=== PATIENT | male | born 1945 | race Caucasian/White ===

== ENCOUNTER 2016-12-24 00:30 | Inpatient (IN) ==
--- NOTE | 2016-12-24 03:43 | Emergency Department Note ---
Disposition Clinical Impression: Inguinal hernia Qualifiers: Obstruction and gangrene presence: without obstruction or gangrene Laterality: unilateral Recurrence: not specified as recurrent Qualified Code(s): K40.90 - Unilateral inguinal hernia, without obstruction or gangrene, not specified as recurrent Disposition: Admitted As Inpatient Condition: Fair [facility] Care Provider[facility] - Forms: ED Satisfaction Letter Time of Disposition: 04:22 Male Urogenital HPI - General Chief complaint: ED Urogenital-Male Stated complaint: poss strangulated right inguinal hernia Time Seen by Provider: 12/24/16 00:50 Source: patient, EMS Limitations: no limitations - History of Present Illness HPI Narrative: patient brought to the ED via EMS from [facility] after it was discovered he has a right strangulated inguinal hernia. They sent his CT with him. He is having mild pain in the right testicle, with swelling. He further has a history of throat cancer, has a permanent tracheostomy, diabetes. No reported fever, no nausea or vomiting Pt Subjective Complaint: testicle pain Onset (ago): hour(s) Duration: intermittent Location: right testicle Severity: mild, moderate Severity scale (1-10): 4 Quality: sharp Improves with: none Worsens with: palpation, movement Reports: denies other symptoms - Related Data Home Medications Medication Instructions Recorded Confirmed Budesonide/Formoterol 160/4.5 1 puff IH BIDR 09/12/15 09/16/16 [Symbicort 160/4.5] Insulin Glargine [Lantus] 10 unit SQ HS 09/12/15 09/16/16 Levothyroxine [Synthroid] 150 mcg PO DAILY 09/12/15 09/16/16 Albuterol Neb [Proventil Neb] 2.5 mg IH TID 11/14/15 09/16/16 Albuterol Sulfate [Albuterol 90 mcg IH Q4HR PRN 11/14/15 09/16/16 Inhaler] Ferrous Sulfate 324 mg PO DAILY 05/21/16 09/16/16 Docusate Sodium [Diocto] 60 mg PO DAILY PRN 09/16/16 09/16/16 GuaiFENesin/Dextromethorphan 10 ml PO Q6H PRN 09/16/16 09/16/16 [Children's Mucinex Cough Liq] Polyethylene Glycol 3350 [MiraLAX] 17 gm PO DAILY 09/16/16 09/16/16 Previous Rx's Medication Instructions Recorded HYDROcodone/ACETA 7.5-325/15mL 10 - 15 ml PO Q6H PRN #450 solution 05/21/16 Hydrocodone/Acetaminophen 10 ml GTUBE Q4-6H PRN #150 solution 09/16/16 [Hydrocodon-Acetamin 7.5-325/15] Allergies Allergy/AdvReac Type Severity Reaction Status Date / Time diphenhydramine Allergy Hives Verified 05/21/16 08:44 [From Benadryl] Sulfa (Sulfonamide AdvReac Dizziness Verified 05/21/16 08:44 Antibiotics) All systems ED: reviewed and negative except as stated. Constitutional: Denies: fever, chills, weakness, weight change Genitourinary: Reports: testicular pain Past Medical History - Past Medical History Attestation: Yes The following information was validated with the patient. Source: patient, nursing notes reviewed Medical history: Reports: cancer, COPD, diabetes, GERD, hyperlipidemia, thyroid disease Psychiatric history: Reports: no psych history - Social History Smoking Status: Never smoker Smokeless Tobacco Status: No Alcohol use: Reports: none Drug use: Reports: none Physical Exam - General Limitations: no limitations General appearance: alert, in no apparent distress - Head Head exam: normal inspection - Eye Eye exam: Present: normal appearance - ENT ENT exam: normal exam, normal oropharynx, mucous membranes moist, normal external ear exam - Neck Neck exam: Present: normal inspection, full ROM, trachea midline, other ( permanent tracheostomy present with mask, moderate amount secretions, suctioned ) - Chest Chest inspection: Present: normal inspection, symmetric chest wall rise. Absent : tenderness, rash - Cardiovascular Cardiovascular exam: Present: regular rate, normal rhythm, normal heart sounds - Male exam: Present: inguinal hernia (right), scrotal swelling (right ) Scrotal exam: testicular tenderness: right, testicular swelling: right - Extremities Exam Extremities exam: Present: normal inspection, full ROM - Neurological Exam Neurological exam: Present: alert, oriented X3, normal gait Course - Reevaluation(s) Reevaluation #1: Advised Dr. Selby of patient and he advised to attempt to reduce hernia, and if reduciable he will see on outpatient. Unable to reduce hernia. Dr. Selby advise.d - Consultations Consultation #1: spoke with Dr. Dill, hospitalist and he accepted patient Time: 04:10 ([address] Selby of need to admit patient, he will see on consult in am ) Vital Signs Temperature 98.9 F 12/24/16 00:33 Pulse Rate 76 12/24/16 00:33 Respiratory Rate 18 12/24/16 00:33 Blood Pressure 130/75 12/24/16 00:33 O2 Sat by Pulse Oximetry 94 12/24/16 00:33 Temperature 98.9 F 12/24/16 00:33 Pulse Rate 76 12/24/16 00:33 Respiratory Rate 18 12/24/16 00:33 Blood Pressure 130/75 12/24/16 00:33 O2 Sat by Pulse Oximetry 94 12/24/16 00:33 Oxygen Delivery Oxygen Delivery Trach Mask Urogenital-Male - Differential Diagnosis Likely: inguinal hernia - Medical Records Medical records reviewed: Yes I reviewed the patient's medical records. Attestation Statement - Attestation Attestation: I personally interviewed and examined this patient and my medical decision- making was reviewed with the Advanced Practice Nurse, Ms. Riggins. I agree with the documented findings, disposition and treatment plan as described except to the extent set forth below. Patient is a 71-year-old white male with multiple medical problems who resides in an extended care facility a [facility] with the [facility]. Patient was sent to us after complaining of right groin pain and medical evaluation at the [facility], having performed a CT scan with contrast which shows an incarcerated strangulated right inguinal hernia. Patient arrives here with ongoing right groin pain and fullness visible on exam is localized tenderness to palpation to the affected area. All of patient's labs were performed today including his CT scan and he was sent here for admission and sedative treatment of this hernia. Patient's vital signs are stable on arrival, he is awake alert and oriented 4, stable blood pressure. Patient with a history of numerous chronic medical problems including current trach and received oxygen by trach mask. Patient's caregiver and power of web press roll tender for health care was with the patient on arrival. Patient denies any nausea vomiting, no fevers chills, no other abdominal pain or flank pain, no urinary symptoms or bowel changes. After physical examination patient as well as review of medical records we contacted Dr. Selby, who is on-call for surgery who agreed to consult on the patient and recommended admission to medicine due to patient's other comorbidities and trach management. Dr. Nelson accepted the patient for admission for further evaluation and management.
[2016-12-24] MEDS ORDERED: *HR* HYDROmorphone (PF) 1 MG/ML SYRINGE IVP ONE (04:20)
[2016-12-24] MEDS ORDERED: 0.9 % Sodium Chloride 1,000 ML IVC SCH ×2 (04:30→06:45)
[2016-12-24] MEDS ORDERED: Acetaminophen 325 MG TABLET PO PRN ×2 (06:42→19:28)
[2016-12-24] MEDS ORDERED: Naloxone 0.4 MG/ML INJ IVP PRN (06:42)
--- NOTE | 2016-12-24 06:52 | Internal Med History&Physical ---
Date of Encounter: 12/24/16 Time of Encounter: 06:51 Assessment and Plan (1) Incarcerated right inguinal hernia Current visit: Yes Status: Acute Surgical consult for possible reduction versus Operative management. Pain relief. Kepp the pt NPO and start IV fluids. (2) Diabetes mellitus Current visit: No Status: Chronic start sliding scale insulin Qualifiers: Diabetes mellitus type: type 2 Diabetes mellitus complication status: without complication Diabetes mellitus correction insulin use: with terminal carman use Qualified Code(s): E11.9 - Type 2 diabetes mellitus without complications ; Z79.4 - terminal supervisor (current) use of insulin (3) COPD (chronic obstructive pulmonary disease) Current visit: Yes Status: Chronic Continue bronchodilators Qualifiers: COPD type: unspecified COPD Qualified Code(s): J44.9 - Chronic obstructive pulmonary disease, unspecified (4) Hypothyroidism Current visit: Yes Status: Chronic Continue synthroid Qualifiers: Hypothyroidism type: acquired Qualified Code(s): E03.9 - Hypothyroidism, unspecified (5) Tracheostomy dependence Current visit: Yes Status: Chronic Continue tracheostomy care (6) Status post insertion of percutaneous endoscopic gastrostomy (PEG) tube Current visit: Yes Status: Acute continue PEG tube feeds, when the surgeon clears the pt (7) CAD (coronary artery disease) Current visit: Yes Status: Chronic Pt denies any h/o ACS / NV or revascularization. However, his medical records from [facility] show CAD as one of the problems. Will request EKG. Qualifiers: Coronary Disease-Associated Artery/Lesion type: [place] artery [place] vs. transplanted heart: [place] heart Associated angina: without angina Qualified Code(s): I25.10 - Atherosclerotic heart disease of [place] coronary artery without angina pectoris (8) DVT prophylaxis Current visit: Yes Status: Acute Consider subq heparin, after the surgery Internal Medicine - H&P: HPI Chief complaint: Right inguinal pain; swelling Admitted From: Emergency Dept Plans for Post Hospital Care: Home History of present illness: Mr. 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 He has right inguinal hernia since the beginning of the year and was managed conservatively. [facility] with [facility] and swelling of the right inguinal area and the scrotum. He had CT scan of the abdomen and pelvis at [facility], which reported large right inguinal hernia containing several tacos bowel loops. Slightly increased mild free fluid and stranding at the gall bladder neck suggests a degree of strangulation. No bowel obstruction. He was transferred to the ER at [facility] for further management. Surgeon Dr Selby was notified by ER, who advised admission to the hospitalist service. Pt reports throbbing pain in the right inguinal area and scrotum, which is throbbing and 8/10; worse when he stands. Had BM yesterday, which was normal. Denies nausea or vomiting. His last PEG feeds were yesterday 4 PM. He denies fever, shortness of breath, urinary problems. He is due to have his tracheostomy cannula changed soon. Past Med Surg Social Fam HX - Past Medical History Medical history: cancer, COPD, diabetes, GERD, hyperlipidemia, thyroid disease Psychiatric history: no psych history - Social History Smoking Status: Never smoker Smokeless Tobacco Status: No Alcohol use: none Drug use: none - Family History Brother Hx Family Respiratory Disorders: Yes (COPD) Internal Medicine - H&P: Meds Budesonide/Formoterol 160/4.5 [Symbicort 160/4.5] 1 puff IH BIDR 09/12/15 [ History] Insulin Glargine [Lantus] 10 unit SQ HS 09/12/15 [History] Levothyroxine [Synthroid] 150 mcg PO DAILY 09/12/15 [History] Albuterol Neb [Proventil Neb] 2.5 mg IH TID 11/14/15 [History] Albuterol Sulfate [Albuterol Inhaler] 90 mcg IH Q4HR PRN 11/14/15 [History] Ferrous Sulfate 324 mg PO DAILY 05/21/16 [History] HYDROcodone/ACETA 7.5-325/15mL 10 - 15 ml PO Q6H PRN #450 solution 05/21/16 [Rx] Docusate Sodium [Diocto] 60 mg PO DAILY PRN 09/16/16 [History] GuaiFENesin/Dextromethorphan [Children's Mucinex Cough Liq] 10 ml PO Q6H PRN 06/23 [History] Hydrocodone/Acetaminophen [Hydrocodon-Acetamin 7.5-325/15] 10 ml GTUBE Q4-6H PRN #150 solution 09/16/16 [Rx] Polyethylene Glycol 3350 [MiraLAX] 17 gm PO DAILY 09/16/16 [History] Allergies diphenhydramine [From Benadryl] Allergy (Verified 05/21/16 08:44) Hives Sulfa (Sulfonamide Antibiotics) Adverse Reaction (Verified 05/21/16 08:44) Dizziness All Systems PM: A 10-system review of systems was performed and is negative for pertinent findings except as documented above in the HPI. - Constitutional Vitals: Temp Pulse Resp BP Pulse Ox 98.3 F 63 18 129/80 99 12/24/16 05:32 12/24/16 05:32 12/24/16 05:32 12/24/16 05:32 12/24/16 05:32 Exam: Gen: not in acute destress at my evaluation. HEENT / Neck: Tracheostomy / trach collar in place. No scleral icterus. Cardiac: RRR; No significant murmurs Lungs: B/L air entry present. No significant wheeze Abdomen: PEG tube in place.Tenderness over the right lower abdomen and the scrotum. Bowel sounds present of the hernria. : No garcia cath Neuro: Pt is alert and oriented. No gross weakness of the extremities. Psych: Not aggressive or agitated. Extremities: No significant leg edema skin: No generalized rash. Internal Med - H&P Results - Labs CBC & Chem 7: 12/24/16 07:08 12/24/16 07:08 - Impressions CT scan of the abdomen and pelvis at [facility], which reported large right inguinal hernia containing several tacos bowel loops. Slightly increased mild free fluid and stranding at the gall bladder neck suggests a degree of strangulation. No bowel obstruction.
--- NOTE | 2016-12-24 07:03 | General Surgery Consult Note ---
Date of Encounter: 12/24/16 Time of Encounter: 07:00 Assessment and Plan (1) Incarcerated right inguinal hernia Current Visit: Yes Status: Acute We will plan repair later today of incarcerated right inguinal hernia. This does not appear to be strangulated. The patient also has oxygen dependent COPD as well as diabetes. Patient also has a permanent tracheostomy. This is scheduled to be changed in the future and I will discuss this with History of Present Illness Consult date: 12/24/16 Reason for consult: other (Painful right groin swelling) History of present illness: The patient was in his usual state of health until yesterday. He has severe COPD and head and neck cancer with permanent tracheostomy. He receives feedings via feeding tube. And he is diabetic. He presented to the emergency department after his caregiver noted a painful swelling in his right groin. He has known that he has had a hernia since September in the right lower. Today they were unable to reduce his inguinal hernia. He denies nausea or vomiting he denies generalized abdominal pain. Attempts at reduction of the hernia in the emergency room failed. I evaluated the patient this morning and I was also unable to reduce the hernia. The hernias right inguinal hernia likely sliding and incarcerated but not obstructed. We will plan on repair later today. Past Med Surg Social Fam HX - Past Medical History Medical history: cancer, COPD, diabetes, GERD, hyperlipidemia, thyroid disease Psychiatric history: no psych history - Past Surgical History Surgical History: other (The patient has had resection of base of tongue had neck cancer, tracheostomy, and feeding tube placement) - Social History Smoking Status: Never smoker Smokeless Tobacco Status: No Alcohol use: none Drug use: none - Family History Brother Hx Family Respiratory Disorders: Yes (COPD) Medications and Allergies Budesonide/Formoterol 160/4.5 [Symbicort 160/4.5] 1 puff IH BIDR 09/12/15 [ History] Insulin Glargine [Lantus] 10 unit SQ HS 09/12/15 [History] Levothyroxine [Synthroid] 150 mcg PO DAILY 09/12/15 [History] Albuterol Neb [Proventil Neb] 2.5 mg IH TID 11/14/15 [History] Albuterol Sulfate [Albuterol Inhaler] 90 mcg IH Q4HR PRN 11/14/15 [History] Ferrous Sulfate 324 mg PO DAILY 05/21/16 [History] HYDROcodone/ACETA 7.5-325/15mL 10 - 15 ml PO Q6H PRN #450 solution 05/21/16 [Rx] Docusate Sodium [Diocto] 60 mg PO DAILY PRN 09/16/16 [History] GuaiFENesin/Dextromethorphan [Children's Mucinex Cough Liq] 10 ml PO Q6H PRN 06/23 [History] Hydrocodone/Acetaminophen [Hydrocodon-Acetamin 7.5-325/15] 10 ml GTUBE Q4-6H PRN #150 solution 09/16/16 [Rx] Polyethylene Glycol 3350 [MiraLAX] 17 gm PO DAILY 09/16/16 [History] Allergies diphenhydramine [From Benadryl] Allergy (Verified 05/21/16 08:44) Hives Sulfa (Sulfonamide Antibiotics) Adverse Reaction (Verified 05/21/16 08:44) Dizziness Review of Systems ROS unobtainable: due to endotracheal tube All systems PM: reviewed and no additional remarkable complaints except as stated (The patient's power of day haul youth supervisor reports no difficulties with feedings or vomiting. She does state that the patient has pulmonary nodules and is scheduled for CAT scan. She also states that the tracheostomy tube is scheduled to be changed.) All systems PM: A 10-system review of systems was performed and is negative for pertinent findings except as documented above in the HPI. General Surgery Exam Initial Vital Signs Temp Pulse Resp BP Pulse Ox 98.9 F 76 18 130/75 94 12/24/16 00:33 12/24/16 00:33 12/24/16 00:33 12/24/16 00:33 12/24/16 00:33 - General physical appearance no pain, cachectic, chronically ill - Neck other (Status post base of tongue resection and neck dissection. Tracheostomy) - Respiratory crackles: bilateral, wheezing: bilateral - Cardiovascular Cardiovascular exam: Present: RRR, no murmurs/rubs/gallops - Abdomen Abdomen general surgery: Present: bowel sounds present, non tender Hernia: Present: incarcerated, inguinal (Right) - Genitourinary Present: other (Sliding hernia extends into the proximal on the right side) - Neurologic Present: CN 2-12 grossly intact, normal coordination, normal sensation - Psychiatric Psychiatric general surgery: Present: appropriate, oriented to person, oriented to place, oriented to time, speech is normal, memory intact Exam Initial Vital Signs Temp Pulse Resp BP Pulse Ox 98.9 F 76 18 130/75 94 12/24/16 00:33 12/24/16 00:33 12/24/16 00:33 12/24/16 00:33 12/24/16 00:33 Results - Labs All other labs normal. Consult Discharge Plan - Plan [facility]errals: [facility] [Primary Care Provider] -
[2016-12-24 07:30] LABS: BUN/Creatinine Ratio 25 (6-26); Blood Urea Nitrogen 20 mg/dL (8-26); Carbon Dioxide 28 mEq/L (19-29); Chloride 104 mEq/L (98-109); Glucose 91 mg/dL (70-99); Magnesium 2.1 mg/dL (1.6-2.6); Osmolality,Calculated 286 (280-300); Potassium 4.2 mEq/L (3.5-4.5); Sodium 137 mEq/L (136-145); eGFR For African Americans > 60 (> 60); eGFR For Non-African Americans > 60 (> 60)
[2016-12-24] MEDS ORDERED: Dextrose Gel 15 GM PO PRN ×4 (07:33→19:28)
[2016-12-24] MEDS ORDERED: D5% in Water 1,000 ML IVC PRN ×2 (07:33→19:28)
[2016-12-24] MEDS ORDERED: *HR* Dextrose 50 % in Water (Syg) 50 ML SYRINGE IVP PRN ×2 (07:33→19:28)
[2016-12-24 07:40] LABS: Hematocrit 35.1 % (37.5-50.1); Hemoglobin 11.5 g/dL (12.9-16.9); Mean Corpuscular HGB Conc 32.8 g/dL (31.6-35.5); Mean Corpuscular Volume 88.4 fL (83.0-100.0); Mean Platelet Volume 10.6 fL (9.4-12.4); Platelet Count 178 K/mcL (140-400); Red Blood Count 3.97 M/mcL (4.19-5.50); Red Cell Distribution Width 13.2 % (11.5-14.5)
[2016-12-24] MEDS ORDERED: *HR* HYDROcodone/Acet 7.5/325 mg TABLET PO PRN (07:43)
[2016-12-24] MEDS ORDERED: D5% in 0.9% NACL 1,000 ML IVC SCH (07:45)
[2016-12-24 08:00] LABS: Basophils % 0.4 %; Eosinophils # 0.2 K/mcL (0.0-0.6); Immature Granulocytes % 0.4 % (0-4); Lymphocytes % 18.8 %; Monocytes # 0.7 K/mcL (0.0-1.3); Monocytes % 12.1 %; Neutrophils # 3.6 K/mcL (1.6-8.9); Segmented Neutrophils % 64.3 %
[2016-12-24 08:10] LABS: Alanine Aminotransferase 20 Units/L (0-55); Albumin 3.3 g/dL (3.5-5.0); Alkaline Phosphatase 92 Units/L (38-126); Aspartate Amino Transferase 21 Units/L (5-34); Bilirubin,Total 0.5 mg/dL (0.2-1.2); Globulin 3.3 g/dL (2.4-3.5); Total Protein 6.6 g/dL (6.0-8.3)
--- NOTE | 2016-12-24 08:19 | Internal Med Progress Note ---
<Brandon Singer - Last Filed: 12/24/16 10:28> Date of Encounter: 12/24/16 Time of Encounter: 08:15 - Assessment and plan (1) Incarcerated right inguinal hernia Current Visit: Yes Status: Acute Assessment and plan: [facility] demonstrates incarcerated right inguinal hernia. Patient is seen and evaluated by general surgery with plans for intervention today. - Preop PA lateral chest x-ray completed without any acute findings. Plan: - Surgical intervention per general surgery - Nothing by mouth in preparation for procedure today. (2) COPD exacerbation Current Visit: No Status: Acute Assessment and plan: Known history of COPD, tracheostomy in place requires 3 L of oxygen at baseline at home. Currently on 3 L of oxygen with oxygen saturations greater than 90%. Plan: Start Proventil nebulizer every 6 hours - DuoNeb's when necessary - Continue Symbicort (3) Hypothyroidism Current Visit: Yes Status: Chronic Assessment and plan: Known history of hypothyroidism, plan to continue levothyroxine 150mcg by mouth daily Qualifiers: Hypothyroidism type: acquired Qualified Code(s): E03.9 - Hypothyroidism, unspecified (4) Diabetes mellitus Current Visit: No Status: Chronic Assessment and plan: Known type II diabetic, current glucose 103. - Continue every 6 hour glucose checks as patient is nothing by mouth prior to surgical procedure. - Low-dose sliding scale replacement. - Patient is nothing by mouth so we will continue D5 saline at 75 ML's per hour Qualifiers: Diabetes mellitus type: type 2 Diabetes mellitus complication status: without complication Diabetes mellitus equipment operator intermodal yard insulin use: with equipment operator intermodal yard use Qualified Code(s): E11.9 - Type 2 diabetes mellitus without complications ; Z79.4 - nursing home (current) use of insulin (5) Laryngeal cancer Current Visit: No Status: Acute Assessment and plan: Known history of laryngeal cancer currently tracheostomy dependent. (6) Feeding by G-tube Current Visit: No Status: Acute Assessment and plan: Patient requires feedings through his G-tube. - Nothing by mouth prior to inguinal hernia procedure. (7) DVT prophylaxis Current Visit: No Status: Acute Assessment and plan: SCDs. - Subjective Interval history: Mr. Mosher 71 yo M has been seen and evaluated this morning. He is sitting up in bed in no acute distress. He says he has 5 out of 10 groin pain with his hernia. He explains that he has been receiving oxycodone for his pain. He is awaiting surgical intervention for his incarcerated hernia and says they will be changing out his trach. He denies any other concerns at this time. - Constitutional Vitals: Temp Pulse Resp BP Pulse Ox 98.3 F 63 18 129/80 99 12/24/16 05:32 12/24/16 05:32 12/24/16 05:32 12/24/16 05:32 12/24/16 05:32 - Other Additional findings: General alert awake oriented in no acute distress HEENT: Normocephalic, atraumatic, pupils equal and reactive, oral mucosa moist, neck is supple trach tube in place. Respiratory: Diffuse rhonchi all lung fragoso with inspiratory and expiratory respiratory effort. Cardiac: Regular rate and rhythm positive S1-S2 no murmurs or gallops appreciated. Radial pulses 2+ bilateral. Abdomen: Slightly distended nontender to palpation, PEG tube in left upper quadrant in place. Slight tenderness to palpation of the right inguinal region. Extremities: Symmetric bilateral without any significant deformity, without edema. Internal Medicine: Result - Labs CBC & Chem 7: 12/24/16 07:08 12/24/16 07:08 Labs: Short CBC 12/24/16 Range/Units 07:08 WBC 5.4 (4.3-11.1) K/mcL Hgb 11.5 L (12.9-16.9) g/dL Hct 35.1 L (37.5-50.1) % Plt Count 178 (140-400) K/mcL Neutrophils # 3.6 (1.6-8.9) K/mcL BMP 12/24/16 07:08 Sodium 137 Potassium 4.2 Chloride 104 Carbon Dioxide 28 BUN 20 Creatinine 0.80 Glucose 91 Calcium 9.0 Liver Function 12/24/16 Range/Units 07:08 Total Bilirubin 0.5 (0.2-1.2) mg/dL AST 21 (5-34) Units/L ALT 20 (0-55) Units/L Alkaline Phosphatase 92 (38-126) Units/L Albumin 3.3 L (3.5-5.0) g/dL - VTE Documentation of Mechanical Device: Graduated compression elastic hosiery Consult Discharge Plan - Plan [facility]errals: [facility] [Primary Care Provider[facility] - <Gerardo-Haylee Dougherty - Last Filed: 12/24/16 16:13> Date of Encounter: 12/24/16 - Constitutional Vitals: Temp Pulse Resp BP Pulse Ox 98.1 F 64 19 118/62 100 12/24/16 15:14 12/24/16 15:14 12/24/16 15:14 12/24/16 15:27 12/24/16 15:14 Internal Medicine: Result - Labs CBC & Chem 7: 12/24/16 07:08 12/24/16 07:08 Labs: Short CBC 12/24/16 Range/Units 07:08 WBC 5.4 (4.3-11.1) K/mcL Hgb 11.5 L (12.9-16.9) g/dL Hct 35.1 L (37.5-50.1) % Plt Count 178 (140-400) K/mcL Neutrophils # 3.6 (1.6-8.9) K/mcL BMP 12/24/16 07:08 Sodium 137 Potassium 4.2 Chloride 104 Carbon Dioxide 28 BUN 20 Creatinine 0.80 Glucose 91 Calcium 9.0 Liver Function 12/24/16 Range/Units 07:08 Total Bilirubin 0.5 (0.2-1.2) mg/dL AST 21 (5-34) Units/L ALT 20 (0-55) Units/L Alkaline Phosphatase 92 (38-126) Units/L Albumin 3.3 L (3.5-5.0) g/dL - ABG Interpretation ABG results: PT/INR, D-dimer PT 11.5 Seconds (9.4-12.1) 12/24/16 08:02 - Impressions Impressions Chest X-Ray 12/24/16 09:42 IMPRESSION: Mild linear airspace changes in the lung bases which could represent atelectasis versus infiltrate versus scarring. Follow up to resolution is suggested. D/ / 12/24/2016 10:19:39 Sarah Tejeda MD / Domi Larson Interpreting Provider: Sarah Tejeda MD - Attending Attestation I examined this patient and reviewed laboratory, imaging and all diagnostic data. My medical decision-making was reviewed with Dr Singer - Resident Physician. I agree with the documented findings, disposition and treatment plan as described above
[2016-12-24 08:45] LABS: INR 1.1; Prothrombin Time 11.5 Seconds (9.4-12.1)
[2016-12-24 08:47] LABS: Activated Partial Thrombo Time 30.4 Seconds (26.0-36.0)
--- NOTE | 2016-12-24 09:28 | Electrocardiograph Report ---
[address] [place] [address] Test Date: 2016-12-24 Pat Name: Jose Mosher Department: 115 Room: 3A41 Gender: M Day Porter: NANCI : 1945 Requested By: Parisa Dill Order Number: [id number] Reading MD: Coleman Moseley DO Measurements Intervals [place] Rate: 56 P: 33 PA: 161 QRS: 31 QRSD: 90 T: 18 QT: 414 QTc: 406 Interpretive Statements SINUS BRADYCARDIA Electronically Signed On 12-24-2016 9:27:26 EDT by Coleman Moseley DO
[2016-12-24] MEDS ORDERED: Budesonide/Formoterol 160/4.5 MDI IH SCH (10:00)
[2016-12-24] MEDS ORDERED: Insulin LISPRO 300 UNITS/3 ML VIAL SQ SCH (12:00)
[2016-12-24] MEDS ORDERED: Pantoprazole 40 MG VIAL IVP SCH (12:15)
[2016-12-24] MEDS ORDERED: Ipratropium/Albuterol Neb 3 ML ONE (12:38)
[2016-12-24] MEDS: Ipratropium/Albuterol Neb 3 ML IH SCH ×3 (13:00→22:45)
[2016-12-24] MEDS ORDERED: Lidocaine -MPF 2% 2 ML VIAL ONE (15:48)
[2016-12-24] MEDS ORDERED: *HR* FentaNYL (PF) 100 MCG/2 ML VIAL ONE (16:07)
--- NOTE | 2016-12-24 16:19 | Anesthesia Evaluation PreOp ---
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) SKATE HOP History: CVA Other Medical History: Diabetes Type II (maintained on Lantus), Thyroid ( Hypothyroidism maintained on Synthroid), Other (Base of Tongue Cancer s/p Radiation) Anesthesia History: No Prior Anesthetic Complications, Past Anesthesia (PEG/ Trach) Alcohol Use: none Drug use: none Medications and Allergies Budesonide/Formoterol 160/4.5 [Symbicort 160/4.5] 1 puff IH BIDR 09/12/15 [ History] Insulin Glargine [Lantus] 10 unit SQ HS 09/12/15 [History] Albuterol Sulfate [Albuterol Inhaler] 2 puff IH TID PRN 11/14/15 [History] Docusate Sodium [Diocto] 100 mg PO DAILY PRN 09/16/16 [History] GuaiFENesin/Dextromethorphan [Children's Mucinex Cough Liq] 10 ml PO BID PRN 06/23 [History] Hydrocodone/Acetaminophen [Hydrocodon-Acetamin 7.5-325/15] 10 ml GTUBE Q4-6H PRN #150 solution 09/16/16 [Rx] Polyethylene Glycol 3350 [MiraLAX] 17 gm PO DAILY 09/16/16 [History] Ferrous Sulfate Oral Soln 220 mg GTUBE BID 12/24/16 [History] Fluticasone Propionate Nasal [Flonase] 100 mcg NS DAILY 12/24/16 [History] Ibuprofen Susp [Motrin Susp] 30 ml PO TID PRN 12/24/16 [History] Ipratropium/Albuterol Neb [Duoneb] 3 ml IH Q6HR 12/24/16 [History] Lactose-Reduced Food [Ensure Liquid] 1 bottle PO QID 12/24/16 [History] Lactose-Reduced Food/Fiber [Isosource 1.5 Sean Liquid] 250 ml GTUBE TID 12/24/16 [History] Lansoprazole [Prevacid] 30 mg PO DAILY 12/24/16 [History] Levothyroxine [Levothyroxine Sodium] 137 mcg PO DAILY 12/24/16 [History] Allergies diphenhydramine [From Benadryl] Allergy (Verified 05/21/16 08:44) Hives Sulfa (Sulfonamide Antibiotics) Adverse Reaction (Verified 05/21/16 08:44) Dizziness - Meds/Allergy Pre-op Review Medications Reviewed: Yes Allergies Reviewed: Yes Beta Blockers on Current Med List: No Anesthesia Results - Labs 12/24/16 07:08 12/24/16 07:08 Laboratory Tests 09/12/15 12/24/16 12/24/16 10:55 07:08 07:08 WBC 5.4 Hgb 11.5 L Hct 35.1 L Plt Count 178 PT INR APTT Sodium 137 Potassium 4.2 Chloride 104 Carbon Dioxide 28 BUN 20 Est GFR (Non-Af Amer) > 60 Glucose 91 B-Natriuretic Peptide 56 12/24/16 08:02 WBC Hgb Hct Plt Count PT 11.5 INR 1.1 APTT 30.4 Sodium Potassium Chloride Carbon Dioxide BUN Est GFR (Non-Af Amer) Glucose B-Natriuretic Peptide Anesthesia Exam Vital Signs Temp Pulse Resp BP Pulse Ox 12/24/16 15:27 118/62 12/24/16 15:14 98.1 F 64 19 90/60 100 12/24/16 13:01 18 111/61 100 12/24/16 11:16 97.8 F 65 18 111/61 100 12/24/16 05:32 98.3 F 63 18 129/80 99 12/24/16 04:46 18 128/70 12/24/16 00:33 98.9 F 76 18 130/75 94 Intake and Output 12/24/16 12/24/16 12/24/16 07:59 15:59 23:59 Intake Total 0 / 0 Output Total 300 / 300 0 / 0 Balance -300 / -300 0 / 0 Intake: Oral 0 / 0 Output: Urine 300 / 300 0 / 0 Other: Meal NPO Weight 72.983 kg Blood Glucose* 103 83 Patient Weight 12/24/16 23:59 Weight 72.983 kg Height: 5'6" Weight: 160# BMI = 26 NPO (# of Hours): MNOC - HEENT Pupil (Motor): Pupils equal, EOMI Mallampati: Trach Oral Opening: Greater than 3 - SKATE HOP LOC: Oriented, Confused SKATE HOP Motor: Normal RUE, Normal LUE, Normal RLE, Normal LLE, Normal Face SKATE HOP Sensory: Normal: RUE, LUE, RLE, LLE, Face - Cardiac Rhythm: Regular Murmur: None - Pulmonary Breath Sounds: bilateral Clear, bilateral Rales, bilateral Rhonchi Anesthesia Assess/Plan ASA Score: 4 (Trach dependent, COPD, HTN, Chol, DM, Hypothyroidism) Modified Malou Scale for Level of Consciousness: Cooperative, oriented, and tranquil Anesthetic Plan: General Monitoring Plan: Standard Monitors Recovery Plan: PACU Anes Supervising Prov Stmt: Pt seen/evaluated, R&B Discussed, questions answered and consent obtained. Kellie Stark MD
[2016-12-24] MEDS ORDERED: *HR* Midazolam HCl 2 MG/2 ML VIAL ONE (16:33)
[2016-12-24] MEDS ORDERED: *HR* Propofol 200 MG/20 ML VIAL IVP ONE (16:34)
[2016-12-24] MEDS ORDERED: EPHEDrine 50 MG/ML VIAL ONE (17:08)
[2016-12-24] MEDS ORDERED: Water for inj. (sterile) 10 ML IV ONE (17:08)
[2016-12-24] MEDS ORDERED: Dexamethasone 4 MG/ML VIAL ONE (17:22)
[2016-12-24] MEDS ORDERED: Ondansetron 4 MG/2 ML VIAL ONE (17:22)
[2016-12-24] MEDS ORDERED: *HR* HYDROmorphone 2 MG/ML SYRINGE ONE (17:24)
[2016-12-24] MEDS ORDERED: Dexamethasone 4 MG/ML VIAL IVP ONE (17:33)
[2016-12-24] MEDS ORDERED: *HR* Labetalol 100 MG/20 ML MDV IVP PRN (17:33)
[2016-12-24] MEDS ORDERED: Ondansetron 4 MG/2 ML VIAL IVP ONE (17:33)
--- NOTE | 2016-12-24 18:12 | Operative Note ---
Date of procedure: 12/24/16 Pre-op diagnosis: Incarcerated inguinal hernia Post-op diagnosis: same Procedure: #1Repair of incarcerated inguinal hernia with mesh #2Tracheostomy change Implants: prolene mesh Anesthesia: JUNITO Surgeon: Garret Selby Estimated blood loss (cc): 25 Specimen: hernia sac Condition: stable Disposition: PACU Procedure in Detail: After informed consent the patient was taken to the major operative suite placed in supine position. He had severe kyphosis. It was supported his neck and shoulders he was given adequate conscious sedation. Timeout was taken patient was identified. At the beginning of the case I previously discussed with his ENT surgeon exchanging his tracheostomy tube. He was scheduled to have this changed in several weeks and she asked me to go ahead and change out the tracheostomy tube as previously planned. After adequate conscious sedation removed the #8 balloon Shiley and replaced another #8 balloon Shiley. There are some granulation tissue on the right side of the wound and he had some bleeding. This rapidly stopped. We suctioned the airway and there was no blood in the airway we secured the tracheostomy tube with tapes and this was an excellent airway with no leak. He proceeded with inguinal hernia repair. I made an oblique incision overlying the right inguinal area at the site of lateral marybeth. I dissected down to the level of the external abdominal oblique. This is divided from lateral to medial through the external ring. There is a good deal small bowel on the scrotum. I surrounded the hernia sac and was able to pull the hernia sac out of the scrotum. The testicle was fused to the hernia sac. I was able to identify a dissection plane between the hernia sac and the spermatic cord and testicle. The spermatic cord and testicle were dissected off the hernia sac and returned to the scrotum. I surrounded the spermatic cord with a Chay. The hernia sac was normal sent full of small bowel. There was no cecal sliding component. The small bowel was reduced into the abdomen and I closed the hernia sac at the level of the fascia with a pursestring of 0 Nurolon. The hernia sac was removed. Once this was done there was really no remaining hernia. This was all indirect inguinal hernia. I decided to just use a Ed Prolene patch. I fashioned the Steinmann patch to the appropriate size. This was attached to the shelving edge of Poupart's ligament inferiorly. This was secured to the arcuate ligament and internal abdominal oblique superiorly. The lateral extensions of the Ed mesh were closed with 2 [id number] stitches thus re-creating the internal ring. This gave an excellent technical result. The cord structures were returned to their normal anatomic position. I injected 20 mL of Marcaine for local pain management. The external abdominal oblique was closed with interrupted Vicryl the skin with interrupted Vicryl and skin clips. He tolerated the procedure very well.
[2016-12-24] MEDS: *HR* HYDROmorphone (PF) 1 MG/ML SYRINGE IVP PRN ×2 (18:54→19:07)
--- NOTE | 2016-12-24 19:41 | Anesthesia Evaluation Post Op ---
Date of Encounter: 12/24/16 Time of Encounter: 19:30 - Vital Signs Vital Signs: Vital Signs/O2 Sat/Glucose, Most Current Temp Pulse Resp BP Pulse Ox 12/24/16 19:22 97.3 F L 73 18 137/79 97 12/24/16 19:12 97.3 F L 72 18 132/73 97 12/24/16 19:02 69 18 139/78 97 12/24/16 18:52 71 18 142/48 99 12/24/16 18:42 97.4 F L 70 18 117/65 97 12/24/16 18:32 65 18 113/62 98 12/24/16 18:22 63 18 119/71 99 12/24/16 18:12 97.3 F L 64 18 115/65 100 - Lungs Lungs: Clear Ascult./Percussion - Airway Airway: Non-obstructed - Cardiovascular Regular Rate - Mental Status Mental Status: Alert & Oriented, Answers Appropriately - Pain Pain Scale: 2 - Nausea Vomiting Nausea Vomiting: Not Present - Hydration Hydration: NPO - Discharge PostOp Status: Transfer Patient to floor
[2016-12-24] MEDS: *HR* HYDROcodone/Acet 7.5/325 mg TABLET PO PRN (21:07)
[2016-12-24] MEDS: Budesonide/Formoterol 160/4.5 MDI IH SCH (22:45)
[2016-12-25] MEDS: D5% in 0.9% NACL 1,000 ML IVC SCH ×2 (00:07→00:39)
[2016-12-25] MEDS: Insulin LISPRO 300 UNITS/3 ML VIAL SQ SCH ×2 (00:30→06:08)
[2016-12-25] MEDS: Ipratropium/Albuterol Neb 3 ML IH SCH ×2 (04:13→10:40)
[2016-12-25 04:52] LABS: Basophils % 0.1 %; Hematocrit 32.4 % (37.5-50.1); Hemoglobin 10.7 g/dL (12.9-16.9); Immature Granulocytes % 0.4 % (0-4); Lymphocytes # 0.4 K/mcL (0.6-4.6); Lymphocytes % 3.7 %; Mean Corpuscular Hemoglobin 29.2 pg (28.0-33.3); Mean Corpuscular Volume 88.3 fL (83.0-100.0); Mean Platelet Volume 10.9 fL (9.4-12.4); Monocytes # 0.7 K/mcL (0.0-1.3); Monocytes % 6.9 %; Platelet Count 186 K/mcL (140-400); Red Blood Count 3.67 M/mcL (4.19-5.50); Red Cell Distribution Width 13.1 % (11.5-14.5); Segmented Neutrophils % 88.9 %
[2016-12-25 05:00] LABS: Neutrophils # 8.5 K/mcL (1.6-8.9)
[2016-12-25 05:01] LABS: BUN/Creatinine Ratio 23 (6-26); Blood Urea Nitrogen 21 mg/dL (8-26); Calcium 8.7 mg/dL (8.6-10.8); Carbon Dioxide 24 mEq/L (19-29); Chloride 102 mEq/L (98-109); Glucose 194 mg/dL (70-99); Osmolality,Calculated 284 (280-300); Potassium 4.1 mEq/L (3.5-4.5); Sodium 133 mEq/L (136-145); eGFR For African Americans > 60 (> 60); eGFR For Non-African Americans > 60 (> 60)
[2016-12-25 05:34] LABS: Platelet Estimate Normal (Normal)
--- NOTE | 2016-12-25 07:23 | General Surgery Progress Note ---
Date of Encounter: 12/25/16 Time of Encounter: 07:15 - Assessment and Plan (1) Incarcerated right inguinal hernia Current Visit: Yes Status: Acute We will plan repair later today of incarcerated right inguinal hernia. This does not appear to be strangulated. The patient also has oxygen dependent COPD as well as diabetes. Patient also has a permanent tracheostomy. This is scheduled to be changed in the future and I will discuss this with 12/25/2016. Postoperative day 1 from right inguinal hernia repair. The patient is doing quite well and from a general surgery standpoint is ready for discharge. His tracheostomy has been changed and is free of any bleeding. Subjective Narrative: The patient is postoperative day 1 from repair of right inguinal hernia. The hernia was indirect. I used a Ed patch. He had a very large hernia sac all the way to the tip of the scrotum with the cord contents splayed over the surface. The testicle was intimately associated with the hernia sac. I actually had to remove the testicle and cord from the scrotum and carefully separate the components. The testicle was returned to the scrotum. He should have a good deal expected swelling in the testicle and will likely have some discomfort in this area for several weeks. Today his lungs are clear. I did not change the tracheostomy tube yesterday after discussion with Dr. Valentine. The patient is awake and alert and in very little pain. From a general surgery standpoint he is ready for discharge. Objective Vital Signs - Last 8 Hours Temp Pulse Resp BP Pulse Ox 12/25/16 04:14 18 99 12/25/16 03:13 97.6 F 68 20 88/44 98 12/24/16 23:30 97.6 F 95 16 111/63 97 Intake and Output 12/24/16 12/24/16 12/25/16 15:59 23:59 07:59 Intake Total 500 / 500 0 / 0 Output Total 0 / 0 675 / 675 Balance 0 / 0 500 / 500 -675 / -675 Intake: Free Water Intake Amount 500 / 500 0 / 0 Output: Urine 0 / 0 675 / 675 Other: Meal NPO npo Weight 72.575 kg Blood Glucose* 83 98 234 Patient Weight 12/25/16 23:59 Weight 72.575 kg - General physical appearance chronically ill - ENT Other (Tracheostomy in place and functioning without bleeding. Size 8 Shiley with a balloon) - Respiratory normal expansion, normal respiratory effort, clear to percussion, clear to auscultation - Cardiovascular Cardiovascular exam: Present: RRR, no murmurs/rubs/gallops - Abdomen Abdomen: Present: bowel sounds present, soft, non tender - Incision Incision: Present: clean and dry (The right hemiscrotum is free of hematoma. The dartose muscle is contracted as I would expect) - Neurologic normal coordination, normal sensation - Psychiatric oriented to time, oriented to person, oriented to place, speech is normal, memory intact - Labs 12/25/16 03:59 12/25/16 03:59 Diabetes panel 12/24/16 12/25/16 Range/Units 07:08 03:59 Sodium 137 133 L (136-145) mEq/L Potassium 4.2 4.1 (3.5-4.5) mEq/L Chloride 104 102 (98-109) mEq/L Carbon Dioxide 28 24 (19-29) mEq/L BUN 20 21 (8-26) mg/dL Creatinine 0.80 0.90 (0.72-1.25) mg/dL Glucose 91 194 H (70-99) mg/dL Calcium 9.0 8.7 (8.6-10.8) mg/dL AST 21 (5-34) Units/L ALT 20 (0-55) Units/L Alkaline Phosphatase 92 (38-126) Units/L Albumin 3.3 L (3.5-5.0) g/dL Calcium panel 12/24/16 12/25/16 Range/Units 07:08 03:59 Calcium 9.0 8.7 (8.6-10.8) mg/dL Albumin 3.3 L (3.5-5.0) g/dL Pituitary panel 12/24/16 12/25/16 Range/Units 07:08 03:59 Sodium 137 133 L (136-145) mEq/L Potassium 4.2 4.1 (3.5-4.5) mEq/L Chloride 104 102 (98-109) mEq/L Carbon Dioxide 28 24 (19-29) mEq/L BUN 20 21 (8-26) mg/dL Creatinine 0.80 0.90 (0.72-1.25) mg/dL Glucose 91 194 H (70-99) mg/dL Calcium 9.0 8.7 (8.6-10.8) mg/dL Adrenal panel 12/24/16 12/25/16 Range/Units 07:08 03:59 Sodium 137 133 L (136-145) mEq/L Potassium 4.2 4.1 (3.5-4.5) mEq/L Chloride 104 102 (98-109) mEq/L Carbon Dioxide 28 24 (19-29) mEq/L BUN 20 21 (8-26) mg/dL Creatinine 0.80 0.90 (0.72-1.25) mg/dL Glucose 91 194 H (70-99) mg/dL Calcium 9.0 8.7 (8.6-10.8) mg/dL Total Bilirubin 0.5 (0.2-1.2) mg/dL AST 21 (5-34) Units/L ALT 20 (0-55) Units/L Alkaline Phosphatase 92 (38-126) Units/L Albumin 3.3 L (3.5-5.0) g/dL - VTE Documentation of Mechanical Device: Intermittent pneumatic compression device Consult Discharge Plan - Plan [facility]errals: [facility] [Primary Care Provider[facility] -
[2016-12-25] MEDS: *HR* HYDROcodone/Acet 7.5/325 mg TABLET PO PRN (08:32)
[2016-12-25] MEDS ORDERED: Pantoprazole 40 MG VIAL IVP SCH (09:00)
--- NOTE | 2016-12-25 09:38 | Discharge Summary ---
<Brandon Sniger - Last Filed: 12/25/16 09:41> Date of Encounter: 12/25/16 Time of Encounter: 09:35 - Discharge Diagnosis (1) Incarcerated right inguinal hernia Priority: Primary Status: Acute (2) COPD exacerbation Priority: Secondary Status: Acute (3) Hypothyroidism Priority: Secondary Status: Chronic Qualifiers: Hypothyroidism type: acquired Qualified Code(s): E03.9 - Hypothyroidism, unspecified (4) Diabetes mellitus Priority: Secondary Status: Chronic Qualifiers: Diabetes mellitus type: type 2 Diabetes mellitus complication status: without complication Diabetes mellitus usp insulin use: with usp use Qualified Code(s): E11.9 - Type 2 diabetes mellitus without complications ; Z79.4 - FDC (current) use of insulin (5) Laryngeal cancer Priority: Secondary Status: Acute (6) Feeding by G-tube Priority: Secondary Status: Acute (7) Encounter for tracheostomy tube change Priority: Primary Status: Acute - Discharge Medications Home Medications: Budesonide/Formoterol 160/4.5 [Symbicort 160/4.5] 1 puff IH BIDR 09/12/15 [ History] Insulin Glargine [Lantus] 10 unit SQ HS 09/12/15 [History] Albuterol Sulfate [Albuterol Inhaler] 2 puff IH TID PRN 11/14/15 [History] Docusate Sodium [Diocto] 100 mg PO DAILY PRN 09/16/16 [History] GuaiFENesin/Dextromethorphan [Children's Mucinex Cough Liq] 10 ml PO BID PRN 06/23 [History] Hydrocodone/Acetaminophen [Hydrocodon-Acetamin 7.5-325/15] 10 ml GTUBE Q4-6H PRN #150 solution 09/16/16 [Rx] Polyethylene Glycol 3350 [MiraLAX] 17 gm PO DAILY 09/16/16 [History] Ferrous Sulfate Oral Soln 220 mg GTUBE BID 12/24/16 [History] Fluticasone Propionate Nasal [Flonase] 100 mcg NS DAILY 12/24/16 [History] Ibuprofen Susp [Motrin Susp] 30 ml PO TID PRN 12/24/16 [History] Ipratropium/Albuterol Neb [Duoneb] 3 ml IH Q6HR 12/24/16 [History] Lactose-Reduced Food [Ensure Liquid] 1 bottle PO QID 12/24/16 [History] Lactose-Reduced Food/Fiber [Isosource 1.5 Sean Liquid] 250 ml GTUBE TID 12/24/16 [History] Lansoprazole [Prevacid] 30 mg PO DAILY 12/24/16 [History] Levothyroxine [Levothyroxine Sodium] 137 mcg PO DAILY 12/24/16 [History] Allergies/Adverse Reactions: Allergies diphenhydramine [From Benadryl] Allergy (Verified 05/21/16 08:44) Hives Sulfa (Sulfonamide Antibiotics) Adverse Reaction (Verified 05/21/16 08:44) Dizziness Procedures/tests Complete & Pending: Procedures Performed prior 72 hours Category Date Time Status EKG [ECG 12 lead ECG] [ECG] Stat Y 12/24/16 06:45 Completed Date of admission: 12/24/16 06:42 Primary care physician: PCP [facility] Discharging clinician: Brandon Singer Anticipated date of discharge: 12/25/16 - Patient Status Disposition: Home, Self-Care Condition: Fair Functional capacity at discharge: independent ambulation Overall status at discharge: patient is progressing back to baseline - Discharge Instructions Follow Up With: Carleen Ray CNP [Advanced Practice Nurse] - 01/08/17 9:30 am [facility],PCP [Primary Care Provider] - 12/30/16 9:30 am Additional Instructions: Follow up with PCP in the next 3-5 days Follow up with general surgery in the outpatient setting - Diet and Activity Activity: increase activity as tolerated Diet: advance to your usual diet Interval History: Mr. Mosher is a 71 year old male with past medical history significant for COPD/ status post tracheostomy following pneumonia in September 2015, hypothyroidism, iron deficiency anemia, base of tongue cancer status post radiation therapy, type 2 diabetes mellitus, BPH, reflux esophagitis, coronary artery disease/CVA admitted to [facility] on 12/24/2016 with an incarcerated right inguinal hernia. He was admitted to the general medical floor and kept NPO for surgical intervention. He was seen and evaluated by general surgery and planned for hernia repair that evening. That evening he was brought to the OR and Dr. Selby performed a repair of incarcerated inguinal hernia with mesh and the ENT surgeon exchanging his tracheostomy tube. Mr. Mosher recovered well post- operatively. On 12/25/2016 He was seen by general surgery and cleared for discharge. He was seen and evaluated by the medical service and deemed stable for discharge with close follow up with his PCP and general surgery. Hospital course: Mr. Mosher is a 71 year old male - Time Spent with Patient Total time spent providing and/or coordinating discharge services: - Constitutional Vitals: Temp Pulse Resp BP Pulse Ox 97.8 F 65 20 91/46 98 12/25/16 07:29 12/25/16 07:29 12/25/16 07:29 12/25/16 07:29 12/25/16 07:29 Exam: General alert awake oriented in no acute distress HEENT: Normocephalic, atraumatic, pupils equal and reactive, oral mucosa moist, neck is supple trach tube in place. Respiratory: Clear to auscultation bilaterally in all lung fragoso with inspiratory and expiratory respiratory effort. Cardiac: Regular rate and rhythm positive S1-S2 no murmurs or gallops appreciated. Radial pulses 2+ bilateral. Abdomen: Slightly distended nontender to palpation, PEG tube in left upper quadrant in place. Slight tenderness to palpation of the right inguinal region. post surgical site is dressed without drainage. Extremities: Symmetric bilateral without any significant deformity, without edema. - VTE Documentation of Mechanical Device: Intermittent pneumatic compression device <Haylee Larson - Last Filed: 12/25/16 18:06> Date of Encounter: 12/25/16 Procedures/tests Complete & Pending: Procedures Performed prior 72 hours Category Date Time Status EKG [ECG 12 lead ECG] [ECG] Stat Y 12/24/16 06:45 Completed Date of admission: 12/24/16 06:42 Primary care physician: PCP [place] Hospital course: Mr. Mosher is a 71 year old male - Time Spent with Patient Total time spent providing and/or coordinating discharge services: - Constitutional Vitals: Temp Pulse Resp BP Pulse Ox 98.0 F 77 18 91/54 99 12/25/16 10:58 12/25/16 10:58 12/25/16 10:58 12/25/16 10:58 12/25/16 10:58 - Attending Attestation I examined this patient and reviewed laboratory, imaging and all diagnostic data. My medical decision-making was reviewed with Dr Singer - Resident Physician. I agree with the documented findings, disposition and treatment plan as described above
[2016-12-25] MEDS: Budesonide/Formoterol 160/4.5 MDI IH SCH (10:40)
[2016-12-25 11:06] VITALS: BP 91/54
== END 2016-12-25 11:54 | disposition home or self-care (01) | DRG 351 ==
LOC: 3ANU 00:30 → EMEROO 00:30 → 3ANU 04:56
PROVIDERS: ADMIT Internal Medicine; ATTEND Internal Medicine

== ENCOUNTER 2021-08-02 00:23 | Inpatient (IN) ==
[2021-08-02 00:59] LABS: Basophils % 0.1 %; Hematocrit 40.6 % (37.5-50.1); Hemoglobin 14.3 g/dL (12.9-16.9); Immature Granulocytes % 0.3 % (0-4); Lymphocytes # 0.6 K/mcL (0.6-4.6); Lymphocytes % 8.9 %; Mean Corpuscular HGB Conc 35.2 g/dL (31.6-35.5); Mean Corpuscular Hemoglobin 30.4 pg (28.0-33.3); Mean Corpuscular Volume 86.2 fL (83.0-100.0); Mean Platelet Volume 10.9 fL (9.4-12.4); Monocytes # 0.7 K/mcL (0.0-1.3); Neutrophils # 5.4 K/mcL (1.6-8.9); Platelet Count 154 K/mcL (140-400); Red Blood Count 4.71 M/mcL (4.19-5.50); Red Cell Distribution Width 12.8 % (11.5-14.5); Segmented Neutrophils % 79.7 %; White Blood Count 6.7 K/mcL (4.3-11.1)
[2021-08-02 01:11] LABS: INR 0.8; Prothrombin Time 9.4 Seconds (9.4-12.1)
[2021-08-02 01:14] LABS: Activated Partial Thrombo Time 33.4 Seconds (26.0-36.0)
[2021-08-02 01:32] LABS: BUN/Creatinine Ratio 29 (6-26); Blood Urea Nitrogen 32 mg/dL (8-23); Calcium 8.4 mg/dL (8.6-10.3); Carbon Dioxide 26 mEq/L (23-29); Chloride 81 mEq/L (98-107); Glucose 123 mg/dL (70-105); Osmolality,Calculated 252 (280-300); Potassium 4.2 mEq/L (3.5-5.1); Sodium 117 mEq/L (136-145); Troponin I < 0.03 ng/mL (< 0.04); eGFR For African Americans > 60 (> 60); eGFR For Non-African Americans > 60 (> 60)
[2021-08-02] MEDS ORDERED: Melatonin 3 MG TABLET PO PRN (02:30)
[2021-08-02] MEDS ORDERED: Acetaminophen 325 MG TABLET PO PRN (02:30)
[2021-08-02] MEDS ORDERED: Naloxone 0.4 MG/ML INJ IVP PRN (02:30)
[2021-08-02] MEDS ORDERED: *HR* Promethazine 25 MG/ML VIAL IM PRN (02:30)
[2021-08-02] MEDS ORDERED: 0.9 % Sodium Chloride 1,000 ML IVC SCH (02:30)
[2021-08-02 03:46] LABS: Bilirubin,Urine Negative (Negative); Blood,Urine Trace (Negative); Clarity,Urine Clear (Clear); Color,Urine Light-Yellow (Yellow); Glucose,Urine (UA) Normal (Normal); Ketones,Urine Negative (Negative); Leukocyte Esterase,Urine Negative (Negative); Mucus,Urine Few per lpf (None-Few); Nitrite,Urine Negative (Negative); Protein,Urine 50 mg/dL (Neg-Trace); RBC,Urine 0-3 per hpf (0-3); Specific Gravity,Urine 1.017 (1.010-1.025); Squamous Epithelial Cell,Urine Few per hpf (None-Few); Urobilinogen,Urine Normal (Normal)
[2021-08-02] MEDS ORDERED: Isovue-370 500 ML BOTTLE IVP ONE (04:55)
[2021-08-02 05:40] LABS: INR 0.9; Prothrombin Time 9.7 Seconds (9.4-12.1)
[2021-08-02 05:57] LABS: Alanine Aminotransferase 71 Units/L (7-52); Albumin 3.4 g/dL (3.5-5.7); Albumin/Globulin Ratio 1.2 (1.1-2.2); Alkaline Phosphatase 93 Units/L (34-104); Aspartate Amino Transferase 99 Units/L (13-39); BUN/Creatinine Ratio 27 (6-26); Bilirubin,Direct 0.1 mg/dL (0.0-0.2); Bilirubin,Indirect 0.3 mg/dL (0.0-1.0); Bilirubin,Total 0.4 mg/dL (0.3-1.0); Blood Urea Nitrogen 27 mg/dL (8-23); C-Reactive Protein 28 mg/L (Less than 10); Calcium 8.2 mg/dL (8.6-10.3); Chloride 83 mEq/L (98-107); Globulin 2.9 g/dL (2.4-3.5); Glucose 112 mg/dL (70-105); Lactate Dehydrogenase 259 Units/L (140-271); Magnesium 1.9 mg/dL (1.6-2.6); Osmolality,Calculated 252 (280-300); Potassium 4.2 mEq/L (3.5-5.1); Sodium 118 mEq/L (136-145); Total Protein 6.3 g/dL (6.4-8.9); eGFR For African Americans > 60 (> 60); eGFR For Non-African Americans > 60 (> 60)
[2021-08-02 06:06] LABS: Ferritin 386 ng/mL (20-250)
[2021-08-02 06:19] LABS: Carbon Dioxide 28 mEq/L (23-29)
[2021-08-02] MEDS: *HR* Enoxaparin 40 MG/0.4 ML SYRINGE SQ SCH (06:36)
[2021-08-02] MEDS: *HR* OxyCODONE Immed Rel 5 MG TABLET PO PRN (06:36)
[2021-08-02] MEDS ORDERED: Morphine Sulfate 2 MG/ML SYRINGE IVP ONE (07:09)
[2021-08-02] MEDS: levoFLOXacin 750 MG/150 ML 750 MG/150 ML BAG IVPB SCH (07:51)
[2021-08-02 09:39] LABS: BUN/Creatinine Ratio 27 (6-26); Blood Urea Nitrogen 25 mg/dL (8-23); Calcium 8.2 mg/dL (8.6-10.3); Carbon Dioxide 30 mEq/L (23-29); Chloride 83 mEq/L (98-107); Glucose 98 mg/dL (70-105); Osmolality,Calculated 250 (280-300); Potassium 4.4 mEq/L (3.5-5.1); Sodium 118 mEq/L (136-145); eGFR For African Americans > 60 (> 60); eGFR For Non-African Americans > 60 (> 60)
[2021-08-02] MEDS ORDERED: Dextrose Gel 15 GM/37.5 ML TUBE PO PRN ×2 (10:59)
[2021-08-02] MEDS ORDERED: *HR* Dextrose 50 % in Water (Syg) 50 ML SYRINGE IVP PRN (10:59)
[2021-08-02] MEDS ORDERED: D5% in Water 1,000 ML IVC PRN (10:59)
[2021-08-02] MEDS: 0.9 % Sodium Chloride 1,000 ML IVC SCH (11:21)
[2021-08-02] MEDS: Insulin LISPRO 300 UNITS/3 ML VIAL SUBQ SCH ×3 (11:25→20:49)
[2021-08-02 15:38] LABS: BUN/Creatinine Ratio 26 (6-26); Blood Urea Nitrogen 21 mg/dL (8-23); Calcium 8.3 mg/dL (8.6-10.3); Carbon Dioxide 30 mEq/L (23-29); Chloride 86 mEq/L (98-107); Glucose 89 mg/dL (70-105); Osmolality,Calculated 256 (280-300); Sodium 122 mEq/L (136-145); eGFR For African Americans > 60 (> 60); eGFR For Non-African Americans > 60 (> 60)
[2021-08-02] MEDS: Ferrous Sulfate Oral Soln 300 MG/5 ML UDC PO SCH (17:59)
[2021-08-02 19:06] LABS: BUN/Creatinine Ratio 23 (6-26); Blood Urea Nitrogen 19 mg/dL (8-23); Carbon Dioxide 29 mEq/L (23-29); Chloride 87 mEq/L (98-107); Glucose 169 mg/dL (70-105); Osmolality,Calculated 260 (280-300); Potassium 4.2 mEq/L (3.5-5.1); Sodium 122 mEq/L (136-145); eGFR For African Americans > 60 (> 60); eGFR For Non-African Americans > 60 (> 60)
[2021-08-02 23:20] LABS: BUN/Creatinine Ratio 28 (6-26); Blood Urea Nitrogen 21 mg/dL (8-23); Carbon Dioxide 28 mEq/L (23-29); Chloride 87 mEq/L (98-107); Glucose 154 mg/dL (70-105); Osmolality,Calculated 262 (280-300); Potassium 4.2 mEq/L (3.5-5.1); Sodium 123 mEq/L (136-145); eGFR For African Americans > 60 (> 60); eGFR For Non-African Americans > 60 (> 60)
[2021-08-03 01:23] LABS: Hematocrit 36.4 % (37.5-50.1); Mean Corpuscular HGB Conc 34.9 g/dL (31.6-35.5); Mean Corpuscular Hemoglobin 30.3 pg (28.0-33.3); Mean Corpuscular Volume 86.9 fL (83.0-100.0); Mean Platelet Volume 10.4 fL (9.4-12.4); Platelet Count 153 K/mcL (140-400); Red Blood Count 4.19 M/mcL (4.19-5.50); Red Cell Distribution Width 13.2 % (11.5-14.5); White Blood Count 6.3 K/mcL (4.3-11.1)
[2021-08-03 01:24] LABS: Hemoglobin 12.7 g/dL (12.9-16.9)
[2021-08-03 01:42] LABS: BUN/Creatinine Ratio 30 (6-26); Blood Urea Nitrogen 21 mg/dL (8-23); Calcium 7.5 mg/dL (8.6-10.3); Carbon Dioxide 29 mEq/L (23-29); Chloride 88 mEq/L (98-107); Glucose 148 mg/dL (70-105); Osmolality,Calculated 264 (280-300); Potassium 4.2 mEq/L (3.5-5.1); Sodium 124 mEq/L (136-145); eGFR For African Americans > 60 (> 60); eGFR For Non-African Americans > 60 (> 60)
[2021-08-03 01:56] LABS: Thyroid Stimulating Hormone 2.818 mcIU/mL (0.340-5.600)
[2021-08-03] MEDS: 0.9 % Sodium Chloride 1,000 ML IVC SCH ×2 (01:58→08:18)
[2021-08-03] MEDS: Insulin LISPRO 300 UNITS/3 ML VIAL SUBQ SCH ×6 (04:28→20:30)
[2021-08-03] MEDS: *HR* Enoxaparin 40 MG/0.4 ML SYRINGE SQ SCH (06:15)
[2021-08-03] MEDS: levoFLOXacin 750 MG/150 ML 750 MG/150 ML BAG IVPB SCH (07:50)
[2021-08-03] MEDS: Ferrous Sulfate Oral Soln 300 MG/5 ML UDC PO SCH ×2 (07:52→16:59)
[2021-08-03] MEDS: polyethylene glycoL 3350 17 GM POWD.PACK PO SCH (07:54)
[2021-08-03] MEDS ORDERED: Isovue-370 500 ML BOTTLE IVP ONE (08:42)
[2021-08-03 09:25] LABS: Albumin/Globulin Ratio 1.2 (1.1-2.2); Bilirubin,Direct 0.1 mg/dL (0.0-0.2); Bilirubin,Indirect 0.2 mg/dL (0.0-1.0); Bilirubin,Total 0.3 mg/dL (0.3-1.0); Globulin 2.5 g/dL (2.4-3.5); Total Protein 5.5 g/dL (6.4-8.9)
[2021-08-03] MEDS ORDERED: Lidocaine Jelly 6ml 1 APPL/6 ML JEL.PF.APP TP STA (11:01)
[2021-08-03] MEDS: *HR* HYDROcodone/Acet 5/325 mg TABLET PO PRN ×2 (13:44→20:31)
[2021-08-03 18:06] LABS: BUN/Creatinine Ratio 27 (6-26); Blood Urea Nitrogen 19 mg/dL (8-23); Carbon Dioxide 27 mEq/L (23-29); Chloride 87 mEq/L (98-107); Glucose 177 mg/dL (70-105); Osmolality,Calculated 259 (280-300); Potassium 4.4 mEq/L (3.5-5.1); Sodium 121 mEq/L (136-145); eGFR For African Americans > 60 (> 60); eGFR For Non-African Americans > 60 (> 60)
[2021-08-04] MEDS: *HR* OxyCODONE Immed Rel 5 MG TABLET PO PRN (03:00)
[2021-08-04] MEDS: GuaiFENesin Liq 200 MG/10 ML UDC GTUBE PRN ×2 (03:01→20:28)
[2021-08-04 03:20] LABS: Basophils % 0.1 %; Eosinophils % 0.1 %; Hematocrit 37.6 % (37.5-50.1); Hemoglobin 12.8 g/dL (12.9-16.9); Immature Granulocytes % 0.5 % (0-4); Lymphocytes # 0.7 K/mcL (0.6-4.6); Lymphocytes % 7.8 %; Mean Corpuscular Volume 88.3 fL (83.0-100.0); Mean Platelet Volume 10.5 fL (9.4-12.4); Monocytes # 0.8 K/mcL (0.0-1.3); Monocytes % 8.5 %; Neutrophils # 7.8 K/mcL (1.6-8.9); Platelet Count 166 K/mcL (140-400); Red Blood Count 4.26 M/mcL (4.19-5.50); Red Cell Distribution Width 13.3 % (11.5-14.5); White Blood Count 9.4 K/mcL (4.3-11.1)
[2021-08-04 03:29] LABS: Alanine Aminotransferase 77 Units/L (7-52); Albumin 3.4 g/dL (3.5-5.7); Albumin/Globulin Ratio 1.3 (1.1-2.2); Alkaline Phosphatase 95 Units/L (34-104); Aspartate Amino Transferase 88 Units/L (13-39); BUN/Creatinine Ratio 29 (6-26); Bilirubin,Direct 0.1 mg/dL (0.0-0.2); Bilirubin,Indirect 0.3 mg/dL (0.0-1.0); Bilirubin,Total 0.4 mg/dL (0.3-1.0); Blood Urea Nitrogen 19 mg/dL (8-23); Carbon Dioxide 27 mEq/L (23-29); Chloride 89 mEq/L (98-107); Globulin 2.7 g/dL (2.4-3.5); Glucose 144 mg/dL (70-105); Osmolality,Calculated 259 (280-300); Potassium 4.2 mEq/L (3.5-5.1); Sodium 122 mEq/L (136-145); Total Protein 6.1 g/dL (6.4-8.9); eGFR For African Americans > 60 (> 60); eGFR For Non-African Americans > 60 (> 60)
[2021-08-04] MEDS ORDERED: 0.9 % Sodium Chloride 1,000 ML ONE (05:30)
[2021-08-04] MEDS: *HR* Enoxaparin 40 MG/0.4 ML SYRINGE SQ SCH (05:38)
[2021-08-04] MEDS: levoFLOXacin 750 MG/150 ML 750 MG/150 ML BAG IVPB SCH (08:25)
[2021-08-04] MEDS: Ferrous Sulfate Oral Soln 300 MG/5 ML UDC PO SCH ×2 (08:25→18:06)
[2021-08-04] MEDS: Insulin LISPRO 300 UNITS/3 ML VIAL SUBQ SCH ×5 (08:26→20:39)
[2021-08-04] MEDS: polyethylene glycoL 3350 17 GM POWD.PACK PO SCH (08:26)
[2021-08-04] MEDS: *HR* HYDROcodone/Acet 5/325 mg TABLET PO PRN (09:40)
[2021-08-04] MEDS ORDERED: Furosemide Oral Soln 40 MG/4 ML UDC GTUBE ONE (12:30)
[2021-08-04] MEDS: Ondansetron 4 MG/2 ML VIAL IVP PRN (15:23)
[2021-08-04] MEDS: 0.9 % Sodium Chloride 1,000 ML IVC SCH (15:24)
[2021-08-04] MEDS: Metoclopramide 10 MG/2 ML VIAL IVP SCH (18:15)
[2021-08-04] MEDS ORDERED: Milk and Molasses Enema 200 ML RC ONE (20:00)
[2021-08-05] MEDS: Metoclopramide 10 MG/2 ML VIAL IVP SCH ×4 (00:45→17:55)
[2021-08-05] MEDS: 0.9 % Sodium Chloride 1,000 ML IVC SCH ×2 (02:43→07:04)
[2021-08-05 02:51] LABS: Basophils % 0.1 %; Eosinophils % 0.1 %; Hematocrit 32.3 % (37.5-50.1); Hemoglobin 11.1 g/dL (12.9-16.9); Immature Granulocytes % 0.6 % (0-4); Lymphocytes # 0.4 K/mcL (0.6-4.6); Lymphocytes % 5.1 %; Mean Corpuscular HGB Conc 34.4 g/dL (31.6-35.5); Mean Corpuscular Hemoglobin 30.6 pg (28.0-33.3); Mean Platelet Volume 10.7 fL (9.4-12.4); Monocytes # 0.8 K/mcL (0.0-1.3); Neutrophils # 6.5 K/mcL (1.6-8.9); Platelet Count 164 K/mcL (140-400); Red Blood Count 3.63 M/mcL (4.19-5.50); Red Cell Distribution Width 13.4 % (11.5-14.5); Segmented Neutrophils % 84.1 %; White Blood Count 7.7 K/mcL (4.3-11.1)
[2021-08-05 03:10] LABS: BUN/Creatinine Ratio 24 (6-26); Blood Urea Nitrogen 18 mg/dL (8-23); Carbon Dioxide 28 mEq/L (23-29); Chloride 92 mEq/L (98-107); Glucose 144 mg/dL (70-105); Osmolality,Calculated 272 (280-300); Potassium 4.2 mEq/L (3.5-5.1); Sodium 129 mEq/L (136-145); eGFR For African Americans > 60 (> 60); eGFR For Non-African Americans > 60 (> 60)
[2021-08-05] MEDS: *HR* Enoxaparin 40 MG/0.4 ML SYRINGE SQ SCH (05:14)
[2021-08-05] MEDS: GuaiFENesin Liq 200 MG/10 ML UDC GTUBE PRN (05:34)
[2021-08-05] MEDS: Ferrous Sulfate Oral Soln 300 MG/5 ML UDC PO SCH ×2 (07:32→18:01)
[2021-08-05] MEDS: Insulin LISPRO 300 UNITS/3 ML VIAL SUBQ SCH ×4 (07:32→22:43)
[2021-08-05] MEDS: polyethylene glycoL 3350 17 GM POWD.PACK PO SCH (07:33)
[2021-08-05] MEDS: Ondansetron 4 MG/2 ML VIAL IVP PRN (17:52)
[2021-08-05] MEDS: *HR* OxyCODONE Immed Rel 5 MG TABLET PO PRN (18:01)
[2021-08-05] MEDS: levoFLOXacin 750 MG TABLET GTUBE SCH (18:01)
[2021-08-06] MEDS: Insulin LISPRO 300 UNITS/3 ML VIAL SUBQ SCH ×3 (00:25→08:02)
[2021-08-06] MEDS: Metoclopramide 10 MG/2 ML VIAL IVP SCH ×2 (00:40→05:21)
[2021-08-06] MEDS: GuaiFENesin Liq 200 MG/10 ML UDC GTUBE PRN (00:47)
[2021-08-06] MEDS: *HR* Enoxaparin 40 MG/0.4 ML SYRINGE SQ SCH (05:21)
[2021-08-06 05:55] LABS: Basophils % 0.1 %; Eosinophils % 0.4 %; Hematocrit 31.2 % (37.5-50.1); Hemoglobin 10.8 g/dL (12.9-16.9); Immature Granulocytes % 0.9 % (0-4); Lymphocytes # 0.5 K/mcL (0.6-4.6); Lymphocytes % 6.6 %; Mean Corpuscular HGB Conc 34.6 g/dL (31.6-35.5); Mean Corpuscular Hemoglobin 30.6 pg (28.0-33.3); Mean Corpuscular Volume 88.4 fL (83.0-100.0); Mean Platelet Volume 10.7 fL (9.4-12.4); Monocytes # 0.8 K/mcL (0.0-1.3); Monocytes % 12.1 %; Neutrophils # 5.5 K/mcL (1.6-8.9); Platelet Count 220 K/mcL (140-400); Red Blood Count 3.53 M/mcL (4.19-5.50); Red Cell Distribution Width 13.5 % (11.5-14.5); Segmented Neutrophils % 79.9 %; White Blood Count 6.9 K/mcL (4.3-11.1)
[2021-08-06 06:12] LABS: BUN/Creatinine Ratio 26 (6-26); Blood Urea Nitrogen 18 mg/dL (8-23); Carbon Dioxide 27 mEq/L (23-29); Chloride 94 mEq/L (98-107); Glucose 99 mg/dL (70-105); Osmolality,Calculated 268 (280-300); Sodium 128 mEq/L (136-145); eGFR For African Americans > 60 (> 60); eGFR For Non-African Americans > 60 (> 60)
[2021-08-06 07:10] VITALS: BP 130/78; PULSE 90; TEMP 98.5
[2021-08-06] MEDS: Ferrous Sulfate Oral Soln 300 MG/5 ML UDC PO SCH (07:27)
[2021-08-06] MEDS: levoFLOXacin 750 MG TABLET GTUBE SCH (07:28)
[2021-08-06] MEDS: polyethylene glycoL 3350 17 GM POWD.PACK PO SCH (07:28)
[2021-08-06] MEDS: Ondansetron 4 MG/2 ML VIAL IVP PRN (09:05)
[2021-08-06 10:55] VITALS: O2SAT 94
[2021-08-06 13:10] LABS: Alpha 2 Globulin (PEP) 0.75 g/dL (0.48-1.05); Beta Globulin (PEP) 0.52 g/dL (0.48-1.10)
[2021-08-06 13:22] LABS: IFE Reflexed NOT DONE
== END 2021-08-06 10:15 | disposition home health service (06) | DRG 177 ==
LOC: 2NNU 00:23 → EMEROOARM 00:23 → SUATTDRO 02:21 → 2NNU 03:37 → 3NENU 08-04 13:00
PROVIDERS: ADMIT Internal Medicine; ATTEND Internal Medicine